=== PATIENT | male | born 1950 | race Caucasian/White ===

== ENCOUNTER → 2021-09-03 | Outpatient (CLI) | payer MEDICARE ==
--- NOTE | 2021-09-03 13:45 | RAD ---
EXAM: Right ankle, 3 views; right foot, 3 views. HISTORY: Pain. FINDINGS: 3 views of the right ankle and foot are obtained. There is no fracture, dislocation or subl uxation. The ankle mortise is intact. There is a tiny ossific density inferior to the lateral malleol us, likely due to the sequela of remote injury. There is no significant overlying swelling to suggest an acute avulsion fracture fragment. 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 There is enthesopathy at the Achilles tendon insertion. There is a minimal plantar spur. IMPRESSION: No convincing acute osseous finding. Electronically signed by: Cleopatra Palmer MD (09/03/2021 1:42 PM) [id number]
== END ==
LOC: RAD 11:24
PROVIDERS: ATTEND Internal Medicine
DX: S93.401A Sprain of unspecified ligament of right ankle, initial encounter (principal); S96.911A Strain of unspecified muscle and tendon at ankle and foot level, right foot, initial encounter; M77.31 Calcaneal spur, right foot; X58.XXXA Exposure to other specified factors, initial encounter; Y93.89 Activity, other specified; Y92.89 Other specified places as the place of occurrence of the external cause; Y99.8 Other external cause status
CPT/HCPCS: 73610; 73630